=== PATIENT | female | born 1945 | race African-American/Black ===

== ENCOUNTER 2017-01-28 10:58 | Inpatient (IN) | payer OTHER, BC ==
[2017-01-28 11:34] VITALS: BMI 31.8
--- NOTE | 2017-01-28 12:39 | PDOC ---
History of Present Illness <Mac Jeronimo - Last Filed: 01/28/17 12:51> - History of Present Illness Initial Comments: 01/28/17 12:40 Tone Lozano is a 71 yo female with a significant past medical history of COPD who presents to the emergency department with a 2 week history of cough with shortness of breath. She has previously visited urgent care 2x and was proscribed a prednisone taper and albuterol inhaler after receiving benign CXR. She visited her PCP this AM who sent her to the ER for COPD exacerbation vs. PE rule-out. The patient denies headache and dizziness. Denies fever, chills, nausea, vomit, diarrhea and constipation. Denies dysuria, frequency, urgency and hematuria. Allergies: NKDA Past surgical history: Hip and bilateral knee surgery, mastectomy, and diverticulitis surgery. Social history: Approx. 50 pack year smoking history. PMD - Androni <Harrison Plascencia - Last Filed: 01/28/17 17:35> - General Chief Complaint: Respiratory Stated Complaint: SOB, COUGH (PCP SENT) Time Seen by Provider: 01/28/17 12:31 Past History <Mac Jeronimo - Last Filed: 01/28/17 12:51> - Past Medical History Anemia: No Asthma: No Cancer: Yes (RT BREAST) Cardiac Disorders: No CVA: No COPD: No CHF: No Dementia: No Diabetes: No GI Disorders: No Disorders: No HTN: No Hypercholesterolemia: No Liver Disease: No Seizures: No Thyroid Disease: No - Surgical History Abdominal Surgery: Yes (DIVERTICULITIS 2004) Appendectomy: No Cardiac Surgery: No Cholecystectomy: Yes Lung Surgery: No Neurologic Surgery: No Orthopedic Surgery: Yes (RIGHT HIP REPLACEMENT 2000) - Immunization History Immunization Up to Date: Yes - Suicide/Smoking/Psychosocial Hx Smoking History: Current every day smoker Have you smoked in the past 12 months: Yes Number of Cigarettes Smoked Daily: 3 Information on smoking cessation initiated: No 'Breaking Loose' booklet given: 10/20/12 Hx Alcohol Use: No Drug/Substance Use Hx: No Substance Use Type: None Hx Substance Use Treatment: No <Harrison Plascencia - Last Filed: 01/28/17 17:35> - Past Medical History Allergies/Adverse Reactions: Allergies Allergy/AdvReac Type Severity Reaction Status Date / Time No Known Allergies Allergy Verified 01/28/17 11:29 Home Medications: Ambulatory Orders Oxycodone Sr [Oxycontin] 15 mg PO BID PRN 11/18/15 Review of Systems - Review of Systems Comments:: 01/28/17 12:40 GENERAL/CONSTITUTIONAL: No fever or chills. No weakness. HEAD, EYES, EARS, NOSE AND THROAT: No change in vision. No ear pain or discharge. No sore throat. CARDIOVASCULAR: +Increase in Shortness of Breath over the last 2 weeks. RESPIRATORY: +2 weeks of cough. No wheezing, or hemoptysis. Previously able to walk for 2 blocks, now less than a half. GASTROINTESTINAL: No nausea, vomiting, diarrhea or constipation. GENITOURINARY: No dysuria, frequency, or change in urination. MUSCULOSKELETAL: No joint or muscle swelling or pain. No neck or back pain. SKIN: No rash NEUROLOGIC: No headache, vertigo, loss of consciousness, or change in strength/ sensation. ENDOCRINE: No increased thirst. No abnormal weight change HEMATOLOGIC/LYMPHATIC: No anemia, easy bleeding, or history of blood clots. ALLERGIC/IMMUNOLOGIC: No hives or skin allergy. 01/28/17 17:31 <Harrison Plascencia - Last Filed: 01/28/17 17:35> *Physical Exam - Vital Signs Last Vital Signs Temp Pulse Resp BP Pulse Ox 98.3 F 85 20 156/103 100 01/28/17 11:30 01/28/17 11:30 01/28/17 11:30 01/28/17 11:30 01/28/17 11:30 <Mac Jeronimo - Last Filed: 01/28/17 12:51> - Vital Signs Last Vital Signs Temp Pulse Resp BP Pulse Ox 98.3 F 85 20 156/103 100 01/28/17 11:30 01/28/17 11:30 01/28/17 11:30 01/28/17 11:30 01/28/17 11:30 - Physical Exam Comments: 01/28/17 12:40 GENERAL: Awake, alert, and fully oriented, short of breath with movement HEAD: No signs of trauma, normocephalic, atraumatic EYES: PERRLA, EOMI, sclera anicteric, conjunctiva clear ENT: Auricles normal inspection, hearing grossly normal, nares patent, oropharynx clear without exudates. Moist mucosa NECK: Normal ROM, supple, no lymphadenopathy, JVD, or masses LUNGS: +Lungs tight. Speaks full sentences HEART: Regular rate and rhythm, normal S1 and S2, no murmurs, rubs or gallops, peripheral pulses normal and equal bilaterally. ABDOMEN: Soft, nontender, normoactive bowel sounds. No guarding, no rebound. No masses EXTREMITIES: Normal inspection, Normal range of motion, no edema. No clubbing or cyanosis. NEUROLOGICAL: Cranial nerves II through XII grossly intact. Normal speech, normal gait, no focal sensorimotor deficits SKIN: Warm, Dry, normal turgor, no rashes or lesions noted. 01/28/17 17:29 <Harrison Plascencia - Last Filed: 01/28/17 17:35> ED Treatment Course - LABORATORY CBC & Chemistry Diagram: 01/28/17 12:54 01/28/17 13:20 <Harrison Plascencia - Last Filed: 01/28/17 17:35> Medical Decision Making - Medical Decision Making 01/28/17 17:31 Patient presented for COPD exacerbation /PE rule-out; CTA of limited quality due to infiltration. Per radiologist, "lobar aatelactasis of right middle lobe secondary to severe narrowing of the right middle lobe bronchus at its origin, felt to be due to extrinsic compression from the right pulmonary artery." Pulmonary consulted and requested admission. <Harrison Plascencia - Last Filed: 01/28/17 17:35> *DC/Admit/Observation/Transfer <Mac Jeronimo - Last Filed: 01/28/17 12:51> - Discharge Dispostion Admit: Yes <Harrison Plascencia - Last Filed: 01/28/17 17:35> Diagnosis at time of Disposition: Obstructive chronic bronchitis with exacerbation
--- NOTE | 2017-01-28 13:01 | PDOC ---
Attending Attestation - Resident Resident Name: Harrison Plascencia - ED Attending Attestation I have performed the following: I have examined & evaluated the patient, The case was reviewed & discussed with the resident, I agree w/resident's findings & plan, Exceptions are as noted - HPI HPI: 01/28/17 12:59 shortness of breath and cough - Physicial Exam PE: 01/28/17 13:00 No Distress, No Hypoxia - Medical Decision Making 01/28/17 13:[address] Harrison Plascencia's Assessment and Plan
[2017-01-28 13:29] LABS: BASOPHIL 1.4 % (0-2.0); EOSINOPHIL 0.8 % (0-4.5); MCH 30.2 pg (25.7-33.7); MCHC 32.2 g/dl (32.0-36.0); MEAN CELL VOLUME 93.8 fl (80-96); MEAN PLT VOLUME 6.9 fl (7.5-11.1); NEUTROPHILS 49.6 % (42.8-82.8); PLATELET COUNT 410 K/MM3 (134-434); RDW 15.7 % (11.6-15.6); WHITE BLOOD COUNT 9.8 K/mm3 (4.0-10.0)
[2017-01-28 13:58] LABS: ALBUMIN 3.8 g/dl (3.4-5.0); ANION GAP 9 (8-16); BILIRUBIN,TOTAL 0.3 mg/dL (0.2-1.0); CALCIUM 9.6 mg/dL (8.5-10.1); CO2 27 mmol/L (21-32); CREATININE 1.3 mg/dL (0.55-1.02); GLUCOSE,RANDOM 77 mg/dL (74-106); SGOT/AST 17 U/L (15-37); SGPT/ALT 21 U/L (12-78); TOT PROT 7.4 g/dl (6.4-8.2)
[2017-01-28 14:01] LABS: ALK PHOS 65 U/L (45-117); CPK 218 IU/L (26-192); TROPONIN I < 0.02 ng/ml (0.00-0.05)
[2017-01-28] MEDS ORDERED: SODIUM CHLORIDE 500 ML IV STA (14:20)
[2017-01-28] MEDS ORDERED: ACETAMINOPHEN 325 MG TABLET (FP) PO PRN (21:30)
[2017-01-28] MEDS ORDERED: CEFTRIAXONE 1 GM in DEXTROSE 5%-WATER - 50 ML IVPB SCH (21:30)
--- NOTE | 2017-01-28 21:35 | HP ---
Admitting History and Physical - Primary Care Physician PCP: Angela Espinosa - Admission History of Present Illness: Tone Lozano is a 71 yo female with a significant past medical history of COPD who presents to the emergency department with a 2 week history of cough with shortness of breath. She has previously visited urgent care 2x and was proscribed a prednisone taper and albuterol inhaler after receiving benign CXR. She visited her PCP this AM who sent her to the ER for COPD exacerbation vs. PE rule-out. - Past Medical History Pulmonary: Yes: COPD - Smoking History Smoking history: Current every day smoker Have you smoked in the past 12 months: Yes Aproximately how many cigarettes per day: 3 - Alcohol/Substance Use Hx Alcohol Use: No Home Medications - Allergies Allergies/Adverse Reactions: Allergies Allergy/AdvReac Type Severity Reaction Status Date / Time No Known Allergies Allergy Verified 01/28/17 11:29 - Home Medications Home Medications: Ambulatory Orders Prednisone 10 mg PO DAILY 01/28/17 Tramadol HCl [Ultram] 50 mg PO ONCE 01/28/17 Physical Examination Vital Signs: Vital Signs Temperature 98.3 F 01/28/17 11:30 Pulse Rate 85 01/28/17 11:30 Respiratory Rate 20 01/28/17 11:30 Blood Pressure 156/103 01/28/17 11:30 O2 Sat by Pulse Oximetry (%) 100 01/28/17 11:30 Constitutional: Yes: No Distress HENT: Yes: Atraumatic Neck: Yes: Supple Cardiovascular: Yes: Regular Rate and Rhythm Respiratory: Yes: Rhonchi Gastrointestinal: Yes: Normal Bowel Sounds Extremities: Yes: WNL Neurological: Yes: Alert, Oriented Problem List - Problems (1) COPD exacerbation Assessment/Plan: pt had uri was put on steroids by pmd will start abx duo nebs steroids Code(s): J44.1 - CHRONIC OBSTRUCTIVE PULMONARY DISEASE W (ACUTE) EXACERBATION (2) Back pain Code(s): M54.9 - DORSALGIA, UNSPECIFIED Assessment/Plan Laboratory Tests 01/28/17 01/28/17 12:54 13:20 WBC 9.8 D RBC 3.70 Hgb 11.2 Hct 34.7 MCV 93.8 MCH 30.2 MCHC 32.2 RDW 15.7 H Plt Count 410 D MPV 6.9 L Neutrophils % 49.6 D Lymphocytes % 37.1 Monocytes % 11.1 H Eosinophils % 0.8 D Basophils % 1.4 Sodium 141 Potassium 4.2 Chloride 105 Carbon Dioxide 27 Anion Gap 9 BUN 21 H Creatinine 1.3 H Creat Clearance w eGFR 40.26 Random Glucose 77 Calcium 9.6 Total Bilirubin 0.3 AST 17 D ALT 21 Alkaline Phosphatase 65 Creatine Kinase 218 H Creatine Kinase Index 1.1 CK-MB (CK-2) 2.470 Troponin I < 0.02 Total Protein 7.4 Albumin 3.8 Active Medications Generic Name Dose Route Start Last Admin Trade Name Freq PRN Reason Stop Dose Admin Acetaminophen 650 mg 01/28/17 21:30 Tylenol - PO Q6H PRN FEVER OR PAIN Albuterol/Ipratropium 1 amp 01/28/17 21:33 Duoneb - NEB Q4H PRN SHORTNESS OF BREATH Ceftriaxone Sodium 1 gm/ 100 mls @ 200 mls/hr 01/28/17 21:30 Dextrose IVPB 01/28/17 23:29 DAILY LESLIE
[2017-01-28] MEDS ORDERED: cefTRIAXone SODIUM 1 GM VIAL ONE (22:18)
[2017-01-28] MEDS ORDERED: DEXTROSE 5%-WATER - 50 ML IVPB ONE (22:18)
[2017-01-28] MEDS: CEFTRIAXONE 1 GM in DEXTROSE 5%-WATER - 50 ML IVPB SCH (22:30)
[2017-01-28] MEDS: ALBUTEROL SO4 2.5/IPRATROPIUM 0.5 INH SOL 3 ML VIAL.NEB. NEB PRN (23:40)
[2017-01-29] MEDS ORDERED: guaiFENesin 200 MG/10 ML 10 ML UNIT-DOSE CUPS PO ONE ×2 (02:51→11:15)
[2017-01-29] MEDS: ALBUTEROL SO4 2.5/IPRATROPIUM 0.5 INH SOL 3 ML VIAL.NEB. NEB PRN (07:10)
--- NOTE | 2017-01-29 10:12 | HOSP ---
Subjective - Review of Symptoms HEENT: No: Head Aches, Visual Changes, Post Nasal Drip Pulmonary: Yes: Cough. No: Pleuritic Chest Pain Cardiovascular: No: Chest Pain, Palpitations, Light Headedness Gastrointestinal: No: Nausea, Vomiting, Abdominal Pain Musculoskeletal: Yes: No Symptoms Neurological: No: Weakness, Change in speech, Confusion Physical Examination Vital Signs: Vital Signs Temperature 98.2 F 01/29/17 09:15 Pulse Rate 138 H 01/29/17 09:15 Respiratory Rate 18 01/29/17 09:15 Blood Pressure 149/104 01/29/17 09:15 O2 Sat by Pulse Oximetry (%) 93 L 01/28/17 22:00 Constitutional: Yes: Well Nourished, Calm Eyes: Yes: Conjunctiva Clear, EOM Intact, PERRL HENT: Yes: Atraumatic, Normocephalic Neck: Yes: Supple, Trachea Midline. No: Lymphadenopathy, Thyromegaly Cardiovascular: Yes: Tachycardia, S1, S2. No: Pulse Irregular, Bruit, Gallop, Murmur Respiratory: Yes: Regular, CTA Bilaterally. No: Accessory Muscle Use, On Nasal O2, SOB Gastrointestinal: Yes: Normal Bowel Sounds, Soft. No: Tenderness Edema: No Peripheral Pulses: Left Radial: 2+, Right Radial: 2+ Neurological: Yes: Alert, Oriented Psychiatric: Yes: Alert, Oriented Hospitalist Encounter Assessment: Called by Nurse Ballesteros due to asymptomatic tachycardia found on routine vital check while awaiting call back from primary team. 71 yr old woman current everyday smoker presented to ED with nonproductive cough and sob for past 2 weeks. No associated symptoms. She was seen in urgent care x2, prescribed 5-day prednisone taper (01/24-01/28 starting with 40mg, she took the 40,30,20 doses and then came to the hospital yesterday so did not take the final 10mg for 2 days.), proair(which she used twice) and tramadol. Denies home HTN medications, hx of cardiac conditions, fevers, chills, headache , sob, chest pain, palpitations, abd pain, nausea, vomiting, previous use of albuterol. Patient's PCP is Dr. Ramos, patient says she does not recall being told she had HTN or renal problems in the past. She received duoneb treatment in the morning at 6AM and says she has been coughing all night. EKG and chest xray pending. Low suspicion for ACS as patient denies asymptoms. likely that tachycardia is side effect of albuterol vs decreased fluid intake EKG is sinus rhythm with Vent rate of 115 without acute ischemic changes. will defer rate control medications are this time since HR has improved without intervention and patient has no complaints. On admission labs pt's Cr 1.3, previous Cr 1.4 in 2016. discussed giving patient IVF bolus, however pt declined saying she will increase po intake of water. Patient resting comfortably in bed. Recommend nicotine gum for smoking cessation as patient is a current everyday smoker and does not want to use the patch but is open to the gum. Primary team to re-assess patient. Primary Physician Notified: Angela Espinosa Time PMD Notified: 10:20 Visit type - Emergency Visit Emergency Visit: No - New Patient This patient is new to me today: Yes Date on this admission: 01/29/17 - Critical Care Critical Care patient: No
[2017-01-29] MEDS ORDERED: cefTRIAXone SODIUM 1 GM VIAL ONE (11:31)
[2017-01-29] MEDS ORDERED: DEXTROSE 5%-WATER - 50 ML IVPB ONE (11:32)
[2017-01-29] MEDS: CEFTRIAXONE 1 GM in DEXTROSE 5%-WATER - 50 ML IVPB SCH (11:34)
--- NOTE | 2017-01-29 11:40 | EKG ---
Test Reason : Blood Pressure : / mmHG Vent. Rate : 115 BPM Atrial Rate : 115 BPM P-R Int : 162 ms QRS Dur : 064 ms QT Int : 328 ms P-R-T Axes : -13 -22 073 degrees QTc Int : 453 ms PROBABLE LOW ATRIAL VS JUNCTIONAL TACHYCARDIA WITH VA CONDUCTION WITH OCCASIONAL PREMATURE ATRIAL COMPLEXES CONDUCTED WITH ABERRANCY NONSPECIFIC ST AND T WAVE ABNORMALITY CLINICAL CORRELATION AND FOLLOW UP TRACING IS RECOMMENDED WHEN COMPARED WITH ECG OF 28-JAN-2017 13:30, PREMATURE VENTRICULAR COMPLEXES ARE NOW PRESENT Confirmed by ANGELICA EASTON MD ([id number]) on 01/29/2017 11:40:00 AM Referred By: Dolores ARCHER Confirmed By:ANGELICA EASTON MD
--- NOTE | 2017-01-29 13:10 | CONSULT ---
Consultation: PULMONARY CONSULT REQUESTING PROVIDER: Dr. Espinosa CONSULT REQUEST: We have been asked to medically evaluate this patient. HISTORY OF PRESENT ILLNESS: Ms. Lozano is a 71yo F current everyday smoker who was sent to the ER by her PCP. She had 2 weeks of nonproductive cough associated with gradual onset SOB. She has been smoking since she was 18 years old, appx 3 cigarettes a day. Along with cough, she endorsed subjective fevers, but denies URI symptoms or sick contacts. She has never been told she has COPD, doesn't take home inhalers. She denies hemoptysis, leg swelling, has hx of breast CA in 90s with R sided mastectomy. Pt saw urgent care facility twice, and was prescribed prednisone taper, albuterol inhaler, and antibiotics. She then called her doctor who told her to come to the ER. Today, her SOB has improved, cough is unchanged. Denies CP. This AM patient received duoneb treatment at 6AM, and subsequently had episode of asymptomatic tachycardia. EKG shows sinus rhythm with Vent rate of 115 without acute ischemic changes. REVIEW OF SYSTEMS: CONSTITUTIONAL: Absent: fever, chills, diaphoresis, generalized weakness, malaise, loss of appetite, weight change HEENT: Absent: rhinorrhea, nasal congestion, throat pain, throat swelling, difficulty swallowing, mouth swelling, ear pain, eye pain, visual changes CARDIOVASCULAR: Absent: chest pain, syncope, palpitations, irregular heart rate, lightheadedness , peripheral edema RESPIRATORY: Absent: cough, shortness of breath, dyspnea with exertion, orthopnea, wheezing, stridor, hemoptysis GASTROINTESTINAL: Absent: abdominal pain, abdominal distension, nausea, vomiting, diarrhea, constipation, melena, hematochezia GENITOURINARY: Absent: dysuria, frequency, urgency, hesitancy, hematuria, flank pain, genital pain MUSCULOSKELETAL: Absent: myalgia, arthralgia, joint swelling, back pain, neck pain SKIN: Absent: rash, itching, pallor HEMATOLOGIC/IMMUNOLOGIC: Absent: easy bleeding, easy bruising, lymphadenopathy, frequent infections ENDOCRINE: Absent: unexplained weight gain, unexplained weight loss, heat intolerance, cold intolerance NEUROLOGIC: Absent: headache, focal weakness or paresthesias, dizziness, unsteady gait, seizure, mental status changes, bladder or bowel incontinence PSYCHIATRIC: Absent: anxiety, depression, suicidal or homicidal ideation, hallucinations. PHYSICAL EXAMINATION Vital Signs Temperature 98.7 F 01/29/17 10:00 Pulse Rate 108 Respiratory Rate 18 01/29/17 11:30 Blood Pressure 140/57 01/29/17 11:30 O2 Sat by Pulse Oximetry (%) 98 01/29/17 09:00 GEN: AAOx3, NAD, Lying comfortably, coughing intermittently HEENT: PERRLA, EOMi CV: S1, S2, tachycardic rate, regular rhythm LUNG: CTABL with prolonged expiratory phase ABD: Soft, NT, ND, normoactive BS MSK: No edema, postsurgical srinivasan to knees bilaterally Active Medications Generic Name Dose Route Start Last Admin Trade Name Freq PRN Reason Stop Dose Admin Acetaminophen 650 mg 01/28/17 21:30 Tylenol - PO Q6H PRN FEVER OR PAIN Albuterol/Ipratropium 1 amp 01/28/17 21:33 01/29/17 07:10 Duoneb - NEB 1 amp Q4H PRN Administration SHORTNESS OF BREATH Ceftriaxone Sodium 1 gm/ 50 mls @ 100 mls/hr 01/28/17 21:45 01/29/17 11:34 Dextrose IVPB 100 mls/hr DAILY LESLIE Administration IMAGING: CTA Chest: - Essentially nondiagnostic CTA due to IV line infiltration with suboptimal opacification of the arteries. No large saddle embolus - R middle Lobar atelectasis secondary to severe narrowing of the right middle lobe bronchus at its origin, felt to be due to extrinsic compression from the right pulmonary artery. No evidence of right hilar mass. Nonemergent pulmonology consultation is recommended with bronchoscopic correlation. ASSESSMENT/PLAN: Ms. Lozano is a 71yo F current everyday smoker with PMHx of COPD who presented with 2 weeks of SOB with nonproductive cough # Shortness of Breath - likely 2/2 COPD exac, less likely PNA or PE - Consider switching Duoneb --> Ipratropium nebulizer TID standing + Q6 PRN - IV Solumedrol 60mg once --> re-evaluate in AM - D/C Ceftriaxone - Less likely PE - Wells Score 0 on admission, consider d-dimer if concerned , but could be falsely elevated # Tachycardia - asymptomatic - Likely 2/2 duoneb treatments, HR coming down slowly - Change to Ipratropium nebulizer # Atelectasis - From prior scans, has progressively increased - Due to compression of R pulmonary artery - Less likely from mass, however due to smoking hx, high risk Dispo: We will continue to follow the patient. Thank you for this consultative opportunity. Dr. Ezio Jones MD - PGY1 Visit type - Emergency Visit Emergency Visit: No - New Patient This patient is new to me today: No - Critical Care Critical Care patient: No
--- NOTE | 2017-01-29 14:02 | EKG ---
Test Reason : Blood Pressure : / mmHG Vent. Rate : 083 BPM Atrial Rate : 083 BPM P-R Int : 144 ms QRS Dur : 064 ms QT Int : 374 ms P-R-T Axes : 059 -08 048 degrees QTc Int : 439 ms NORMAL SINUS RHYTHM WITH RARE VPBs POSSIBLE LEFT ATRIAL ENLARGEMENT ANTERIOR INFARCT (CITED ON OR BEFORE 18-NOV-2015) ABNORMAL ECG WHEN COMPARED WITH ECG OF 18-NOV-2015 15:28, NO SIGNIFICANT CHANGE WAS FOUND REPEAT EKG IF CLINICALLY INDICATED Confirmed by ANGELICA EASTON MD ([id number]) on 01/29/2017 2:01:58 PM Referred By: Confirmed By:ANGELICA EASTON MD
[2017-01-29] MEDS ORDERED: IPRATROPIUM BR 0.02% 0.5 MG/2.5 ML VIAL.NEB. NEB PRN (15:59)
[2017-01-29] MEDS ORDERED: methylPREDNISolone NA SUCC 40 MG/1 ML VIAL IVPB ONE (16:00)
[2017-01-29] MEDS: IPRATROPIUM BR 0.02% 0.5 MG/2.5 ML VIAL.NEB. NEB SCH ×2 (16:27→22:18)
--- NOTE | 2017-01-29 16:42 | PN ---
Progress Note (short form) - Note Progress Note: DR SARMIENTO WILL TAKE OVER CARE FROM TODAY Problem List - Problems (1) COPD exacerbation Code(s): J44.1 - CHRONIC OBSTRUCTIVE PULMONARY DISEASE W (ACUTE) EXACERBATION (2) Back pain Code(s): M54.9 - DORSALGIA, UNSPECIFIED
[2017-01-29] MEDS ORDERED: predniSONE 20 MG TABLET (UD) PO SCH (16:45)
--- NOTE | 2017-01-29 17:01 | PN ---
Teaching Attending Note Name of Resident: Ezio Jones ATTENDING PHYSICIAN STATEMENT I saw and evaluated the patient. I reviewed the resident's note and discussed the case with the resident. I agree with the resident's findings and plan as documented. SUBJECTIVE: 71 F, 1PPD since the age of 18, right breast CA S/P mastectomy. No significant period of time of abstinence. Not maintained on home respiratory treatments. 2 recent visits to urgent care; prescribed prednisone taper, albuterol inhaler, and antibiotics. Admitted due to worsening of symptoms of SOB and cough. No hemoptysis. Patient follows with Dr Andino. Has had several CT scans here at [facility]. Previous imaging reveals increased PA size and somewhat chronic atelectasis. No discrete mass is noted. The lumen of the RML bronchus appears to have possible extrinsic compression from the PA. No hilar mass is noted. Most recent CT was attempted a PE protocol, but was poor quality. No obvious large/ central emboli are noted. Intake & Output 01/26/17 01/27/17 01/28/17 01/29/17 23:59 23:59 23:59 23:59 Intake Total 170 675 Balance 170 675 Weight 197 lb 11.2 oz Last Vital Signs Temp Pulse Resp BP Pulse Ox 97.8 F 106 H 20 114/53 98 01/29/17 14:36 01/29/17 14:36 01/29/17 14:36 01/29/17 14:36 01/29/17 09:00 Active Medications Acetaminophen (Tylenol -) 650 mg PO Q6H PRN PRN Reason: FEVER OR PAIN Ipratropium Campbell (Atrovent 0.02% Nebulizer -) 1 amp NEB TIDR LESLIE Last Admin: 01/29/17 16:27 Dose: 1 amp Ipratropium Campbell (Atrovent 0.02% Nebulizer -) 1 amp NEB Q6H PRN PRN Reason: WHEEZING Prednisone (Deltasone -) 20 mg PO DAILY LESLIE GEN: AAOx3, NAD, (+) congested cough HEENT: PERRLA, (-) Icterus CV: S1, S2, Tachycardia LUNG: (+) Mild expiratory wheeze with a prolonged expiratory phase ABD: Soft, NT, ND, normoactive BS MSK: No edema, postsurgical srinivasan to knees bilaterally IMAGING: ASSESSMENT/PLAN: AE of COPD Chronic RML atelectasis (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 Probable PAH Active 1 PPD smoker History of Right breast CA Do not have a high clinical suspicion of CAP Tachycardia due to B agonist medications Low clinical suspicion for PE IV Medrol O2 as needed Noted empiric ABX -> Can likely D/C BD TX with Atrovent due to tachycardia Should have an ECHO as some point to evaluate of PAH No smoking counseled -> patient is interested in trying nicotene gum on discharge Outpatient PFTs once stable/improved Incentive Spirometry Should have outpatient imaging for follow up If she remains stable/improves -> Hopeful D/C in AM Will follow Thank you. Dr Ly
--- NOTE | 2017-01-29 18:00 | PN ---
Progress Note, Physician Chief Complaint: in bed NAD afebrile; no CP/SOB still coughing; some yellow sputum had an episode of tachycardia earlier - seen by hospitalist and pulmonary; thought to be sec to B agonists nebs/INH no tachycardia now meds chart labs tests and consults reviewed and d/w pt and staff - Current Medication List Current Medications: Active Medications Acetaminophen (Tylenol -) 650 mg PO Q6H PRN PRN Reason: FEVER OR PAIN Heparin Sodium (Porcine) (Heparin -) 5,000 unit SQ BID LESLIE Ipratropium Buckley (Atrovent 0.02% Nebulizer -) 1 amp NEB TIDR LESLIE Last Admin: 01/29/17 16:27 Dose: 1 amp Ipratropium Buckley (Atrovent 0.02% Nebulizer -) 1 amp NEB Q6H PRN PRN Reason: WHEEZING Methylprednisolone Sodium Succinate (Solu-Medrol -) 40 mg IVPB Q6H-IV LESLIE - Objective Vital Signs: Vital Signs Temperature 97.8 F 01/29/17 14:36 Pulse Rate 106 H 01/29/17 14:36 Respiratory Rate 20 01/29/17 14:36 Blood Pressure 114/53 01/29/17 14:36 O2 Sat by Pulse Oximetry (%) 98 01/29/17 09:00 Constitutional: Yes: No Distress, Calm Eyes: Yes: Conjunctiva Clear HENT: Yes: Atraumatic Neck: Yes: Supple Cardiovascular: Yes: Regular Rate and Rhythm Respiratory: Yes: Rales (expiratory bilat) Gastrointestinal: Yes: Soft. No: Distention, Tenderness Genitourinary: No: CVA Tenderness - Left, CVA Tenderness - Right Musculoskeletal: No: Joint Stiffness, Joint Swelling Extremities: No: Cold, Cool, Cyanosis Edema: No Integumentary: No: Rash, Venous Stasis Changes Neurological: Yes: WNL, Alert, Oriented ...Motor Strength: WNL Psychiatric: Yes: WNL, Alert, Oriented. No: Agitated, Suicidal Ideation - ....Imaging Chest X-ray: Report Reviewed Cat Scan: Report Reviewed Other: Report Reviewed Assessment/Plan 71 YOF s/p URI treated outpt with ATB admitted with persistent cough and SOB Acute exac of COPD Chronic RML atelectasis (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 Probable PAH Active 1 PPD smoker History of Right breast CA Tachycardia due to B agonist medications Low clinical suspicion for PE IV Medrol O2 as needed Noted empiric ABX -> Can likely D/C BD TX with Atrovent due to tachycardia Should have an ECHO as some point to evaluate of PAH stop smoking counseled -> to try nicotine gum on discharge, f/u outpt NRT or other means for smoking cessation Outpatient PFTs once stable/improved Incentive Spirometry d/w pulm dr Ly and ID dr Rodríguez; will need outpt w/u with cardiology and pulmonary falls PFXd/w pt and staff t time 40 min
--- NOTE | 2017-01-29 18:02 | CON.ID ---
Consult Consult Specialty:: infectious diseases Reason for Consultation:: pneumonia/bronchitis - History of Present Illness Chief Complaint: cough History of Present Illness: 71 yo female with a significant past medical history of COPD who presents to the emergency department with a 2 week history of cough with shortness of breath. She has previously visited urgent care 2x and was proscribed a prednisone taper and albuterol inhaler after receiving benign CXR. She visited her PCP this AM who sent her to the ER for COPD exacerbation vs. PE rule-out. patient mentions that she has not been getting better wiht all the abx she has taken patient is chronic and active smoker and she plans to stop it patients last episode according to her was 4 yrs back she does not have any other major illness according to her - History Source History Provided By: Patient Limitations to Obtaining History: No Limitations - Past Medical History Pulmonary: Yes: COPD - Alcohol/Substance Use Hx Alcohol Use: No - Smoking History Smoking history: Current every day smoker Have you smoked in the past 12 months: Yes Aproximately how many cigarettes per day: 3 Home Medications - Allergies Allergies/Adverse Reactions: Allergies Allergy/AdvReac Type Severity Reaction Status Date / Time No Known Allergies Allergy Verified 01/28/17 11:29 - Home Medications Home Medications: Ambulatory Orders Prednisone 10 mg PO DAILY 01/28/17 Tramadol HCl [Ultram] 50 mg PO ONCE 01/28/17 Review of Systems - Review of Systems Constitutional: reports: No Symptoms Eyes: reports: No Symptoms HENT: reports: No Symptoms Neck: reports: No Symptoms Cardiovascular: reports: No Symptoms Respiratory: reports: Cough, SOB, SOB on Exertion Gastrointestinal: reports: No Symptoms Genitourinary: reports: No Symptoms Musculoskeletal: reports: No Symptoms Integumentary: reports: No Symptoms Neurological: reports: No Symptoms Endocrine: reports: No Symptoms Hematology/Lymphatic: reports: No Symptoms Psychiatric: reports: No Symptoms Physical Exam Vital Signs: Vital Signs Temperature 97.8 F 01/29/17 14:36 Pulse Rate 106 H 01/29/17 14:36 Respiratory Rate 20 01/29/17 14:36 Blood Pressure 114/53 01/29/17 14:36 O2 Sat by Pulse Oximetry (%) 98 01/29/17 09:00 Constitutional: Yes: Well Nourished, Calm, Mild Distress Eyes: Yes: Conjunctiva Clear Cardiovascular: Yes: Regular Rate and Rhythm Respiratory: Yes: Regular, Diminished (at the bases), Other (occassional crackles) Gastrointestinal: Yes: Normal Bowel Sounds, Soft Musculoskeletal: Yes: WNL Extremities: Yes: WNL Neurological: Yes: Alert, Oriented Psychiatric: Yes: Alert, Oriented Imaging - Results Cat Scan: Report Reviewed, Image Reviewed Assessment/Plan COPD Chronic RML atelectasis (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 Active 1 PPD smoker History of Right breast CA i have looked in detail the patinets imaging studies and the previous report worry factor is it is become a compressing factor and as i see it if this continues there high likely that the patient will get the segmental collapse and then will have high chances of having infection also i am worried is there a chance of developing a fistula there at the moment i do not think that she has pneumonia she has been on ceftriaxone plan continue ceftriaxone should get last dose of iv tomorroew and then we can switch to oral augmentin for another 2 days i think she should be further worked up rest as per primary team
[2017-01-29] MEDS ORDERED: methylPREDNISolone NA SUCC 125 MG/2 ML VIAL ONE (18:37)
[2017-01-29] MEDS: methylPREDNISolone NA SUCC 40 MG/1 ML VIAL IVPB SCH (21:46)
[2017-01-29] MEDS: HEPARIN NA (PORCINE) 5,000 UNITS/ML 1ML VIAL SQ SCH (21:49)
[2017-01-30] MEDS: methylPREDNISolone NA SUCC 40 MG/1 ML VIAL IVPB SCH ×2 (02:17→08:54)
[2017-01-30] MEDS: IPRATROPIUM BR 0.02% 0.5 MG/2.5 ML VIAL.NEB. NEB SCH (06:25)
--- NOTE | 2017-01-30 08:20 | PN ---
Physical Exam: PULMONARY SUBJECTIVE: Patient is much improved from yesterday.Patient was able to sleep well last night. Coughing has decreased, still not productive. SOB improved, pt has walked around without SOB. OBJECTIVE: Vital Signs Period Temp Pulse Resp BP Sys/Huynh Pulse Ox Last 24 Hr 97.8 F-98.7 F 91-142 18-20 114-164/53-104 98 GEN: AAOx3, NAD HEENT: PERRLA, EOMi CV: S1, S2, RRR LUNG: Minimal exp wheezes w/ prolonged exp phase ABD: Soft, NT, ND, normoactive BS MSK: No edema Active Medications Generic Name Dose Route Start Last Admin Trade Name Freq PRN Reason Stop Dose Admin Acetaminophen 650 mg 01/28/17 21:30 Tylenol - PO Q6H PRN FEVER OR PAIN Heparin Sodium (Porcine) 5,000 unit 01/29/17 22:00 01/29/17 21:49 Heparin - SQ 5,000 unit BID LESLIE Administration Ceftriaxone Sodium 1 gm/ 50 mls @ 100 mls/hr 01/30/17 08:17 Dextrose IVPB 01/30/17 08:46 ONCE ONE Ipratropium Oolitic 1 amp 01/29/17 16:00 01/30/17 06:25 Atrovent 0.02% Nebulizer - NEB 1 amp TIDR LESLIE Administration Ipratropium Oolitic 1 amp 01/29/17 15:59 Atrovent 0.02% Nebulizer - NEB Q6H PRN WHEEZING Methylprednisolone Sodium Succinate 40 mg 01/29/17 21:00 01/30/17 02:17 Solu-Medrol - IVPB 40 mg Q6H-IV LESLIE Administration IMAGING: CTA Chest: - Essentially nondiagnostic CTA due to IV line infiltration with suboptimal opacification of the arteries. No large saddle embolus - R middle Lobar atelectasis secondary to severe narrowing of the right middle lobe bronchus at its origin, felt to be due to extrinsic compression from the right pulmonary artery. No evidence of right hilar mass. Nonemergent pulmonology consultation is recommended with bronchoscopic correlation. ASSESSMENT/PLAN: Ms. Lozano is a 71yo F current everyday smoker with PMHx of COPD who presented with 2 weeks of SOB with nonproductive cough # Shortness of Breath - improved, likely 2/2 COPD exac, less likely PNA or PE - Continue Ipratropium nebulizer TID standing + Q6 PRN - tachycardia has improved - S/p IV Solumedrol 60mg x1 yesterday - As per ID, will receive one more dose of IV Ceftriaxone 1g today - Less likely PE - Wells Score 0 on admission, consider d-dimer if concerned , but could be falsely elevated # Tachycardia - asymptomatic - Improved after change to Ipratropium neb # Atelectasis - From prior scans, has progressively increased - Due to compression of R pulmonary artery - Less likely from mass, however due to smoking hx, high risk Thank you for this consultative opportunity. Dr. Ezio Jones MD - PGY1 Visit type - Emergency Visit Emergency Visit: No - New Patient This patient is new to me today: No - Critical Care Critical Care patient: No - Discharge Referral Referred to [facility] Med P.C.: No
[2017-01-30 08:26] VITALS: BP 153/99; PULSE 98; TEMP 98.7
[2017-01-30 08:45] LABS: BASOPHIL 0.8 % (0-2.0); MCH 30.4 pg (25.7-33.7); MCHC 32.5 g/dl (32.0-36.0); MEAN CELL VOLUME 93.4 fl (80-96); MEAN PLT VOLUME 7.7 fl (7.5-11.1); NEUTROPHILS 79.9 % (42.8-82.8); PLATELET COUNT 414 K/MM3 (134-434); WHITE BLOOD COUNT 11.4 K/mm3 (4.0-10.0)
[2017-01-30 09:15] LABS: ALBUMIN 3.7 g/dl (3.4-5.0); ANION GAP 13 (8-16); BILIRUBIN,TOTAL 0.3 mg/dL (0.2-1.0); CALCIUM 10.2 mg/dL (8.5-10.1); CO2 24 mmol/L (21-32); GLUCOSE,RANDOM 131 mg/dL (74-106); SGPT/ALT 23 U/L (12-78)
[2017-01-30 09:16] LABS: ALK PHOS 75 U/L (45-117); CREATININE 1.3 mg/dL (0.55-1.02); SGOT/AST 15 U/L (15-37)
[2017-01-30] MEDS ORDERED: CEFTRIAXONE 1 GM in DEXTROSE 5%-WATER - 50 ML IVPB ONE (09:30)
[2017-01-30] MEDS ORDERED: cefTRIAXone SODIUM 1 GM VIAL ONE (09:43)
[2017-01-30] MEDS ORDERED: DEXTROSE 5%-WATER - 50 ML IVPB ONE (09:44)
[2017-01-30] MEDS: HEPARIN NA (PORCINE) 5,000 UNITS/ML 1ML VIAL SQ SCH (10:36)
--- NOTE | 2017-01-30 11:27 | DS ---
Physical Examination Vital Signs: Vital Signs Temperature 98.7 F 01/30/17 08:25 Pulse Rate 98 H 01/30/17 08:25 Respiratory Rate 20 01/30/17 08:25 Blood Pressure 153/99 01/30/17 08:25 O2 Sat by Pulse Oximetry (%) 98 01/29/17 09:00 Findings/Remarks: Pt is feeling better, wants to go home. Pt w/o ARGUETA, CP, palpitations. Pt with cough. Time spent in managing pt's discharge: over 50 minutes. Constitutional: Yes: No Distress, Calm Cardiovascular: Yes: Regular Rate and Rhythm, S1, S2 Respiratory: Yes: Regular, Rhonchi (in upper lungs, R >> L) Gastrointestinal: Yes: Normal Bowel Sounds, Soft. No: Tenderness Edema: No Neurological: Yes: Alert, Oriented Labs: CBC, BMP 01/30/17 07:10 01/30/17 07:10 Discharge Summary Reason For Visit: OBSTRUCTIVE CHRONIC BRONCHITIS WITH EXACERBATION Current Active Problems COPD exacerbation (Acute) Hospital Course: Pt came to ER after was seen in my office c/o ARGUETA; prior she was at Urgent Care twice, treated with abtx and Prednisone and sill feeling SOB, having ARGUETA. Pt was sent to ER ( I spoke with ER attending and resident), had Chest CT (+ for R middle lobe atelectasis). Pt was admitted to hospital (pt was admitted to Dr. Huizar); pt was admitted for acute COPD exacerbation, and possilble PNA. Pt received IV abtx, steroids; she was seen by Pulmonary (Dr. Martinez) and ID (Dr. Rodríguez). Pt with an episode of tachycardia, considered to be secondary to Albuterol nebulized treatment; pt was recommended to use only Atrovent for now (pt is aware). Pt is considered not to have PNA, but RML atelecasis to be secondary to PAH and bronchial compression by branch of right pulmonary artery. Pt improved with current treatment and would be DC'ed home on PO abtx and Prednisone; pt to have close f/u with my office, Pulmonary and Cardio Office. Pt was recommended again to quit smoking. Condition: Improved - Instructions Diet, Activity, Other Instructions: LOW salt, LOW Cholesterol, NCS diet. Do NOT use albuterol pump until so told by doctor Referrals: Carlo Ortiz MD [Primary Care Provider] - (within one week) Alexander Spencer MD [Staff Physician] - (or Dr. Suarez or Dr. Sullivan or Dr. Hoang. To be seen within one week.) Erik Montesinos MD [Staff Physician] - (in 1-2 weeks) Disposition: HOME - Home Medications Comprehensive Discharge Medication List: Ambulatory Orders Prednisone Tramadol HCl [Ultram] 50 mg PO ONCE 01/28/17 Atrovent Inhaler Augmentin
== END 2017-01-30 14:40 | disposition home or self-care (01) | DRG 191 ==
LOC: JER 10:58 → JERBED 17:35 → OBSVTOIN 21:30 → J5S 21:45
PROVIDERS: ADMIT Internal Medicine; ATTEND Specialist
DX: J44.1 Chronic obstructive pulmonary disease with (acute) exacerbation (principal); J98.11 Atelectasis; R00.0 Tachycardia, unspecified; T48.6X5A Adverse effect of antiasthmatics, initial encounter; M54.9 Dorsalgia, unspecified; Z85.3 Personal history of malignant neoplasm of breast; F17.210 Nicotine dependence, cigarettes, uncomplicated
CPT/HCPCS: 36415; 71010-TC; 71275-TC; 80053; 82553; 84484; 85025; 93005; 93010; 93306-TC; 94010; 94640; 99283-25; G0378; J1644